=== PATIENT | female | born 1935 | race Caucasian/White ===

== ENCOUNTER 2016-09-06 17:23 | Emergency (ER) | payer MEDICARE, OTHER ==
[~2016-09-06 17:23] MED LIST: Iopamidol 370 76% 100 ML VIAL ONE
[2016-09-06 17:52] LABS: #Basophils 0.1 thou/uL (0.0-0.2); #Eosinphils 0.1 thou/uL (0.0-0.7); #Lymphocytes 2.4 thou/uL (1.20-3.40); #Monocytes 0.6 thou/uL (0.11-0.59); #Neutrophils 5.8 thou/uL (1.40-6.50); %Eosinophils 0.7 % (0.0-10.0); %Lymphocytes 26.8 % (21.0-51.0); %Monocytes 6.6 % (0.0-10.0); %Neutrophils 64.9 % (42.0-75.0); Hemoglobin 14.4 g/dL (12.0-16.0); Mean Corpuscular HGB CONC 32.6 g/dL (32.0-36.0); Mean Corpuscular Hemoglobin 29.5 pg (27.0-31.0); Mean Corpuscular Volume 90.5 fl (81.0-99.0); Mean Platelet Volume 6.1 fL (7.4-10.4); Platelet Count 388 thou/uL (130-400); RBC Distribution Width 11.9 % (11.5-14.5); Red Blood Cell (RBC) Count 4.88 mill/uL (4.20-5.40)
[2016-09-06] MEDS ORDERED: Nitroglycerin 0.4 MG TAB (25 Tab Bottle) ONE (17:57)
[2016-09-06 18:08] LABS: Bilirubin Negative (Negative); Blood, Urine Negative (Negative); Clarity Clear (Clear); Glucose, Urine (Dipstick) Negative (Negative); Leukocyte Negative (Negative); Nitrite Negative (Negative); Protein, Urine (Dipstick) Negative (Neg-Trace); Urobilinogen 0.2 mg/dL (0.2-1.0); pH, Urine 5.5 (5.0-9.0)
[2016-09-06 18:09] LABS: ALT (SGPT) 7 U/L (8-55); AST (SGOT) 12 U/L (5-34); Albumin 3.9 g/dL (3.4-4.8); Alkaline Phosphatase 63 U/L (40-150); Anion Gap 16 mmol/L (10-20); BUN (Urea Nitrogen) 11 mg/dL (9.8-20.1); Bilirubin, Total 0.6 mg/dL (0.2-1.2); Calc. Creatinine Clearance 0 mL/min (70-130); Calcium 9.7 mg/dL (7.8-10.44); Carbon Dioxide 25 mmol/L (23-31); Chloride 102 mmol/L (98-107); Estimated GFR-MDRD 55; Globulin 3.3 g/dL (2.4-3.5); Glucose 147 mg/dL (83-110); Potassium 3.7 mmol/L (3.5-5.1); Protein, Total 7.2 g/dL (6.0-8.3); Sodium 139 mmol/L (136-145)
[2016-09-06 18:09] LABS: Specific Gravity, Urine 1.004 (1.002-1.036)
[2016-09-06 18:11] LABS: CKMB 0.5 ng/mL (0-6.6); Troponin I Less than 0.010 ng/mL (< 0.028)
--- NOTE | 2016-09-06 19:46 | CT ---
CT OF THE BRAIN WITHOUT CONTRAST 09/06/16 A noncontrast study was compared with the prior exam of 02/21/15. Some patchy hypolucency in the deep white matter is consistent with chronic microvascular ischemia a nd seems little different than the 2016 study. There were no areas strongly suggestive of acute stro ke, though MRI would be more sensitive to such. No bleeding, parenchymal mass or edema was seen. Are as of prominence of the inner table of the left temporoparietal region are no different than before. IMPRESSION: Chronic ischemic changes but no acute findings. POS: HOME
--- NOTE | 2016-09-06 19:51 | CT ---
CT ABDOMEN AND PELVIS WITH CONTRAST 09/06/16 Comparison is made with the prior study dated 02/21/15. No acute infiltrates or effusions are seen in the lung bases. The liver, spleen, and pancreas showed no acute changes. There is a 2.6 cm cyst in the lower portion of the right lobe of the liver which is unchanged. The left adrenal gland seems rather thick, a little more so than before, but not disti nctly mass-like. No renal mass was seen; however, there is some mild right hydronephrosis that is mo re prominent today than before. the ureter does not seem particularly dilated and I can find no part icular cause for the finding. I also understand that her urine is clean and her pain is actually lef t sided. The bowel shows some mild gaseous distention of the colon but no evidence of obstruction. Diverticul osis is quite prominent in the sigmoid region but there are no convincing findings of diverticulitis at the moment. No free air or free fluid was seen. CT of the pelvis was remarkable for the diverticulosis. No pelvic masses, inflammatory changes or fr ee fluid could be seen. Degenerative changes are present in the spine. IMPRESSION: 1. Diverticulosis, particularly sigmoid, without findings of diverticulitis. 2. Very mild right hydronephrosis compared to the prior scan. The finding may or may not be of significance. POS: HOME
== END 2016-09-06 21:00 | disposition short-term general hospital (02) ==
LOC: BURERS 17:23
DX: G45.9 Transient cerebral ischemic attack, unspecified (principal); I10 Essential (primary) hypertension; K29.50 Unspecified chronic gastritis without bleeding; K21.9 Gastro-esophageal reflux disease without esophagitis; J42 Unspecified chronic bronchitis; E78.5 Hyperlipidemia, unspecified; Z79.82 Long term (current) use of aspirin; Z79.899 Other long term (current) drug therapy
CPT/HCPCS: 51701; 70450; 74177; 80053; 81003; 82553; 83880; 84443; 84484; 85025; 93005; A4216; A4353

== ENCOUNTER 2019-01-01 07:03 | Emergency (ER) | payer MEDICARE, OTHER ==
[2019-01-01] MEDS ORDERED: Nitroglycerin 0.4 MG TAB 1 EACH ONE ×2 (07:22→07:34)
[2019-01-01] MEDS ORDERED: Aspirin Chewable 81 MG TAB ONE (07:22)
[2019-01-01 07:26] LABS: #Basophils 0.1 thou/uL (0.0-0.2); #Eosinphils 0.1 thou/uL (0.0-0.7); #Lymphocytes 2.6 thou/uL (1.20-3.40); #Monocytes 0.7 thou/uL (0.11-0.59); #Neutrophils 7.7 thou/uL (1.40-6.50); %Eosinophils 0.7 % (0.0-10.0); %Lymphocytes 23.5 % (21.0-51.0); %Monocytes 5.8 % (0.0-10.0); Mean Corpuscular HGB CONC 32.1 g/dL (32.0-36.0); Mean Corpuscular Hemoglobin 30.2 pg (27.0-31.0); Mean Platelet Volume 6.9 fL (7.4-10.4); Platelet Count 309 thou/uL (130-400); RBC Distribution Width 12.3 % (11.5-14.5); Red Blood Cell (RBC) Count 4.63 mill/uL (4.20-5.40); White Blood Cell (WBC) Count 11.2 thou/uL (4.8-10.8)
[2019-01-01] MEDS ORDERED: Metoprolol Tartrate 5 MG/5 ML VIAL ONE (07:37)
[2019-01-01 07:43] LABS: ALT (SGPT) 10 U/L (8-55); AST (SGOT) 15 U/L (5-34); Albumin 4.2 g/dL (3.4-4.8); Alkaline Phosphatase 69 U/L (40-110); Anion Gap 17 mmol/L (10-20); BUN (Urea Nitrogen) 16 mg/dL (9.8-20.1); Bilirubin, Total 0.5 mg/dL (0.2-1.2); Calc. Creatinine Clearance 0 mL/min (70-130); Calcium 9.9 mg/dL (7.8-10.44); Carbon Dioxide 26 mmol/L (23-31); Chloride 104 mmol/L (98-107); Estimated GFR-MDRD 50; Globulin 3.3 g/dL (2.4-3.5); Glucose 103 mg/dL (83-110); Potassium 3.9 mmol/L (3.5-5.1); Protein, Total 7.5 g/dL (6.0-8.3); Sodium 143 mmol/L (136-145)
--- NOTE | 2019-01-01 19:37 | RAD ---
PORTABLE CHEST: 01/01/19 An AP portable film at 0724 is compared with a 02/21/15 study. The heart is normal in size and there is no vascular congestion, edema, or pleural effusion. The lynne gs are mildly hyperexpanded. There is some minor prominence of the basilar markings, a little more so than in 2016. Nevertheless, the findings look more chronic than acute. No major lobar infiltrates we re seen. Some calcification is seen in the aortic arch. IMPRESSION: Minor accentuation of basilar markings, more likely chronic than acute. POS: HOME
== END 2019-01-01 09:09 | disposition short-term general hospital (02) ==
LOC: BURERS 07:03
DX: I20.0 Unstable angina (principal); I10 Essential (primary) hypertension; K21.9 Gastro-esophageal reflux disease without esophagitis; J42 Unspecified chronic bronchitis; E78.5 Hyperlipidemia, unspecified; M19.90 Unspecified osteoarthritis, unspecified site
CPT/HCPCS: 71045; 80053; 83880; 84484; 85025; 85379; 93005; 96374

== ENCOUNTER 2019-02-19 13:34 | Emergency (ER) | payer MEDICARE ==
[2019-02-19 16:21] LABS: #Basophils 0.1 thou/uL (0.0-0.2); #Eosinphils 0.1 thou/uL (0.0-0.7); #Lymphocytes 1.1 thou/uL (1.20-3.40); #Monocytes 0.9 thou/uL (0.11-0.59); #Neutrophils 7.8 thou/uL (1.40-6.50); %Eosinophils 0.8 % (0.0-10.0); %Lymphocytes 11.1 % (21.0-51.0); %Monocytes 8.5 % (0.0-10.0); %Neutrophils 78.6 % (42.0-75.0); Hemoglobin 13.6 g/dL (12.0-16.0); Mean Corpuscular HGB CONC 32.3 g/dL (32.0-36.0); Mean Corpuscular Hemoglobin 30.2 pg (27.0-31.0); Mean Corpuscular Volume 93.7 fL (78.0-98.0); Mean Platelet Volume 7.3 fL (7.4-10.4); Platelet Count 341 thou/uL (130-400); RBC Distribution Width 12.5 % (11.5-14.5); White Blood Cell (WBC) Count 9.9 thou/uL (4.8-10.8)
[2019-02-19 16:25] LABS: Prothrombin Time 13.1 SEC (12.0-14.7)
[2019-02-19 16:34] LABS: ALT (SGPT) 13 U/L (8-55); AST (SGOT) 14 U/L (5-34); Albumin 3.8 g/dL (3.4-4.8); Alkaline Phosphatase 112 U/L (40-110); Anion Gap 14 mmol/L (10-20); BUN (Urea Nitrogen) 16 mg/dL (9.8-20.1); Bilirubin, Total 0.2 mg/dL (0.2-1.2); Calc. Creatinine Clearance 0 mL/min (70-130); Calcium 9.6 mg/dL (7.8-10.44); Carbon Dioxide 29 mmol/L (23-31); Chloride 104 mmol/L (98-107); Estimated GFR-MDRD 63; Globulin 3.2 g/dL (2.4-3.5); Glucose 89 mg/dL (83-110); Sodium 143 mmol/L (136-145)
--- NOTE | 2019-02-19 17:53 | CT ---
CT OF THE PELVIS WITHOUT CONTRAST: 02/19/[address] of the pelvis was performed following a fall. The patient presents with right hip pain. My understanding is the trauma is subacute. There is a small acute bend to the cortex at the junction of the right greater trochanter and base of the right femoral neck. Additionally, there is a small cortical bump along the upper surface of the right femoral neck, and on a few slices, question of a slight sclerotic area across the femoral neck. The findings are suspicious for, but I feel not completely diagnostic of, a subtle acute fracture. T he left hip appears intact. No pelvic fractures were appreciated. Degenerative changes are seen in th e lower lumbar region. Portions of the right kidney were seen and there are a few subcentimeter hyperechoic cysts at its per iphery, probably small hemorrhagic cysts. This is of no real concern. Sigmoid diverticulosis is prese nt. A tiny umbilical hernia was noted. Filled with fat. IMPRESSION: Findings suspicious for a possible fracture at the base of the right femoral neck as it joins the gre ater trochanter. MRI would be diagnostic as to whether this is real and acute or not. POS: HOME
--- NOTE | 2019-02-19 18:14 | CT ---
CT OF THE RIGHT HIP 02/19/19 Comparison is made with the CT of the pelvis done this same day. As stated on the other exam, there is an area at the base of the right femoral neck where there is so me acute angulation of cortex. Nearby, there is a slight sclerotic band across the bone. The findings raise the question of a minimal impacted fracture at the base of the femoral neck. There is no dislo cation of the femoral head. No soft tissue findings of concern were seen in the vicinity. IMPRESSION: Findings suspicious for, but not diagnostic of a subtle fracture at the base of the femoral neck. If further studies are desired, an MRI would be diagnostic and able to show some edema in the area if th is is acute. POS: HOME
== END 2019-02-19 16:00 | disposition short-term general hospital (02) ==
LOC: BURERS 13:34
DX: S72.001A Fracture of unspecified part of neck of right femur, initial encounter for closed fracture (principal); I10 Essential (primary) hypertension; K21.9 Gastro-esophageal reflux disease without esophagitis; M19.90 Unspecified osteoarthritis, unspecified site; E78.5 Hyperlipidemia, unspecified; W18.30XA Fall on same level, unspecified, initial encounter
CPT/HCPCS: 72192; 80053; 85025; 85610

== ENCOUNTER 2020-07-03 10:37 | Emergency (ER) | payer MEDICARE ==
[2020-07-03 11:14] LABS: #Eosinphils 0.1 thou/uL (0.0-0.7); #Lymphocytes 1.4 thou/uL (1.20-3.40); #Monocytes 0.5 thou/uL (0.11-0.59); #Neutrophils 4.8 thou/uL (1.40-6.50); %Basophils 0.7 % (0.0-1.0); %Lymphocytes 21.2 % (21.0-51.0); %Monocytes 6.7 % (0.0-10.0); %Neutrophils 70.4 % (42.0-75.0); Hemoglobin 14.9 g/dL (12.0-16.0); Mean Corpuscular HGB CONC 32.2 g/dL (32.0-36.0); Mean Corpuscular Hemoglobin 29.6 pg (27.0-31.0); Mean Corpuscular Volume 91.8 fL (78.0-98.0); Mean Platelet Volume 6.5 fL (7.4-10.4); Platelet Count 340 thou/uL (130-400); RBC Distribution Width 12.5 % (11.5-14.5); Red Blood Cell (RBC) Count 5.04 mill/uL (4.20-5.40); White Blood Cell (WBC) Count 6.8 thou/uL (4.8-10.8)
[2020-07-03 11:24] LABS: Bilirubin Negative (Negative); Blood, Urine Trace (Negative); Clarity Clear (Clear); Glucose, Urine (Dipstick) Negative (Negative); Ketone, Urine Negative (Negative); Leukocyte Negative (Negative); Nitrite Negative (Negative); Protein, Urine (Dipstick) Negative (Neg-Trace); Specific Gravity, Urine 1.015 (1.005-1.030); Urobilinogen 0.2 mg/dL (Less than 2); pH, Urine 5.5 (5.0-9.0)
[2020-07-03 11:30] LABS: ALT (SGPT) 9 U/L (8-55); AST (SGOT) 12 U/L (5-34); Albumin 3.8 g/dL (3.4-4.8); Alkaline Phosphatase 65 U/L (40-110); Anion Gap 14 mmol/L (10-20); BUN (Urea Nitrogen) 26 mg/dL (9.8-20.1); Bilirubin, Total 0.4 mg/dL (0.2-1.2); Calc. Creatinine Clearance 0 mL/min (70-130); Calcium 9.6 mg/dL (7.8-10.44); Carbon Dioxide 28 mmol/L (23-31); Chloride 102 mmol/L (98-107); Globulin 2.9 g/dL (2.4-3.5); Glucose 167 mg/dL (83-110); Lipase 10 U/L (8-78); Potassium 4.1 mmol/L (3.5-5.1); Protein, Total 6.7 g/dL (5.8-8.1); Sodium 140 mmol/L (136-145)
[2020-07-03 11:32] LABS: Bacteria/HPF Rare-Few HPF (None Seen); RBC/HPF 0-3 HPF (0-3); Squamous Epithelial 0-3 HPF (0-3); WBC/HPF None Seen HPF (0-3)
[2020-07-03] MEDS ORDERED: Lidocaine 1% PF 5 ML VIAL ONE (11:33)
[2020-07-03] MEDS ORDERED: cefTRIAXone\\ROCEPHIN 1 GM VIAL ONE (11:33)
[2020-07-03] MEDS ORDERED: Aspirin Chewable 81 MG TAB ONE (12:28)
== END 2020-07-03 22:22 | disposition short-term general hospital (02) ==
LOC: BURERS 10:37
DX: R07.89 Other chest pain (principal); K21.9 Gastro-esophageal reflux disease without esophagitis; E78.2 Mixed hyperlipidemia; I10 Essential (primary) hypertension; M19.90 Unspecified osteoarthritis, unspecified site
CPT/HCPCS: 36415; 71045; 80053; 81003; 81015; 83690; 83880; 84484; 85025; 93005; J0696

== ENCOUNTER 2021-03-20 16:37 | Emergency (ER) | payer MEDICARE ==
[2021-03-20 17:56] LABS: Bilirubin Negative (Negative); Blood, Urine Trace (Negative); Clarity Clear (Clear); Glucose, Urine (Dipstick) Negative (Negative); Ketone, Urine Negative (Negative); Leukocyte Negative (Negative); Nitrite Negative (Negative); Protein, Urine (Dipstick) Negative (Neg-Trace); Urobilinogen 0.2 mg/dL (Less than 2); pH, Urine 5.5 (5.0-9.0)
[2021-03-20 17:58] LABS: #Basophils 0.2 thou/uL (0.0-0.2); #Eosinphils 0.2 thou/uL (0.0-0.7); #Lymphocytes 2.1 thou/uL (1.20-3.40); #Monocytes 0.9 thou/uL (0.11-0.59); #Neutrophils 7.7 thou/uL (1.40-6.50); %Basophils 1.8 % (0.0-1.0); %Eosinophils 1.8 % (0.0-10.0); %Lymphocytes 19.2 % (21.0-51.0); %Neutrophils 69.2 % (42.0-75.0); Hemoglobin 13.5 g/dL (12.0-16.0); Mean Corpuscular HGB CONC 32.7 g/dL (32.0-36.0); Mean Corpuscular Hemoglobin 29.4 pg (27.0-31.0); Mean Corpuscular Volume 89.9 fL (78.0-98.0); Mean Platelet Volume 5.9 fL (7.4-10.4); Platelet Count 537 thou/uL (130-400); RBC Distribution Width 12.2 % (11.5-14.5); Red Blood Cell (RBC) Count 4.61 mill/uL (4.20-5.40)
[2021-03-20 18:04] LABS: Specific Gravity, Urine 1.009 (1.002-1.036)
[2021-03-20 18:13] LABS: ALT (SGPT) 13 U/L (8-55); AST (SGOT) 13 U/L (5-34); Albumin 3.7 g/dL (3.4-4.8); Alkaline Phosphatase 78 U/L (40-110); Anion Gap 14 mmol/L (10-20); BUN (Urea Nitrogen) 25 mg/dL (9.8-20.1); Bilirubin, Total 0.3 mg/dL (0.2-1.2); Calc. Creatinine Clearance 0 mL/min (70-130); Calcium 9.3 mg/dL (7.8-10.44); Carbon Dioxide 29 mmol/L (23-31); Chloride 98 mmol/L (98-107); Globulin 3.7 g/dL (2.4-3.5); Glucose 98 mg/dL (83-110); Magnesium 2.2 mg/dL (1.6-2.6); Potassium 4.1 mmol/L (3.5-5.1); Protein, Total 7.4 g/dL (5.8-8.1); Sodium 137 mmol/L (136-145)
[2021-03-20 18:19] LABS: Bacteria/HPF None Seen HPF (None Seen); RBC/HPF 0-3 HPF (0-3); Squamous Epithelial 0-3 HPF (0-3); WBC/HPF 0-3 HPF (0-3)
== END 2021-03-20 19:15 | disposition home or self-care (01) ==
LOC: BURERS 16:37
DX: F32.A Depression, unspecified (principal); I10 Essential (primary) hypertension; E78.2 Mixed hyperlipidemia; K21.9 Gastro-esophageal reflux disease without esophagitis; M19.90 Unspecified osteoarthritis, unspecified site; J42 Unspecified chronic bronchitis; Z79.82 Long term (current) use of aspirin
CPT/HCPCS: 71045; 80053; 81003; 81015; 83735; 84443; 84484; 85025

== ENCOUNTER 2021-09-08 13:52 | Emergency (ER) | payer MEDICARE ==
[2021-09-08] MEDS ORDERED: traMADol HCl 50 MG TAB ONE (15:10)
== END 2021-09-08 15:15 | disposition home or self-care (01) ==
LOC: BURERS 13:52
DX: S32.591A Other specified fracture of right pubis, initial encounter for closed fracture (principal); E78.5 Hyperlipidemia, unspecified; K21.9 Gastro-esophageal reflux disease without esophagitis; I10 Essential (primary) hypertension; X58.XXXA Exposure to other specified factors, initial encounter
CPT/HCPCS: 72220

== ENCOUNTER 2021-10-14 16:25 | Emergency (ER) | payer MEDICARE ==
[2021-10-14 17:34] LABS: #Basophils 0.2 thou/uL (0.0-0.2); #Eosinphils 0.1 thou/uL (0.0-0.7); #Lymphocytes 2.6 thou/uL (1.20-3.40); #Monocytes 0.8 thou/uL (0.11-0.59); #Neutrophils 7.2 thou/uL (1.40-6.50); %Basophils 1.9 % (0.0-1.0); %Eosinophils 0.9 % (0.0-10.0); %Lymphocytes 23.9 % (21.0-51.0); %Monocytes 7.3 % (0.0-10.0); Hemoglobin 14.3 g/dL (12.0-16.0); Mean Corpuscular HGB CONC 32.9 g/dL (32.0-36.0); Mean Corpuscular Hemoglobin 30.4 pg (27.0-31.0); Mean Corpuscular Volume 92.5 fL (78.0-98.0); Platelet Count 333 thou/uL (130-400); RBC Distribution Width 12.7 % (11.5-14.5); Red Blood Cell (RBC) Count 4.69 mill/uL (4.20-5.40); White Blood Cell (WBC) Count 10.8 thou/uL (4.8-10.8)
[2021-10-14 17:46] LABS: Bilirubin Negative (Negative); Blood, Urine Negative (Negative); Clarity Clear (Clear); Glucose, Urine (Dipstick) Negative (Negative); Ketone, Urine Negative (Negative); Leukocyte Negative (Negative); Nitrite Negative (Negative); Protein, Urine (Dipstick) Negative (Neg-Trace); Urobilinogen 0.2 mg/dL (Less than 2)
[2021-10-14 17:54] LABS: ALT (SGPT) 14 U/L (8-55); AST (SGOT) 18 U/L (5-34); Albumin 3.9 g/dL (3.4-4.8); Alkaline Phosphatase 75 U/L (40-110); Anion Gap 17 mmol/L (10-20); BUN (Urea Nitrogen) 28 mg/dL (9.8-20.1); Bilirubin, Total 0.3 mg/dL (0.2-1.2); Calc. Creatinine Clearance 0 mL/min (70-130); Calcium 9.7 mg/dL (7.8-10.44); Carbon Dioxide 25 mmol/L (23-31); Chloride 99 mmol/L (98-107); Estimated GFR 47; Globulin 3.3 g/dL (2.4-3.5); Glucose 93 mg/dL (83-110); Lipase 12 U/L (8-78); Potassium 4.4 mmol/L (3.5-5.1); Protein, Total 7.2 g/dL (5.8-8.1); Sodium 137 mmol/L (136-145)
== END 2021-10-14 18:32 | disposition home or self-care (01) ==
LOC: BURERS 16:25
DX: R06.02 Shortness of breath (principal); Z20.822 Contact with and (suspected) exposure to COVID-19; K21.9 Gastro-esophageal reflux disease without esophagitis; E78.5 Hyperlipidemia, unspecified; E78.00 Pure hypercholesterolemia, unspecified; I10 Essential (primary) hypertension
CPT/HCPCS: 71045; 80053; 81003; 83605; 83690; 83880; 84484; 85025; 93005; 99285; U0003; U0005

== ENCOUNTER 2021-11-27 17:22 | Emergency (ER) | payer MEDICARE ==
[2021-11-27] MEDS ORDERED: Dexamethasone 4 MG TAB ONE (17:56)
[2021-11-27] MEDS ORDERED: traMADol HCl 50 MG TAB ONE (17:56)
== END 2021-11-27 18:11 | disposition home or self-care (01) ==
LOC: BURERS 17:22
DX: J02.9 Acute pharyngitis, unspecified (principal); E78.2 Mixed hyperlipidemia; I10 Essential (primary) hypertension; M19.90 Unspecified osteoarthritis, unspecified site; J42 Unspecified chronic bronchitis
CPT/HCPCS: 99282; J8540

== ENCOUNTER 2021-12-02 10:39 | Emergency (ER) | payer MEDICARE ==
[2021-12-02 11:40] LABS: #Basophils 0.1 thou/uL (0.0-0.2); #Eosinphils 0.1 thou/uL (0.0-0.7); #Lymphocytes 1.4 thou/uL (1.20-3.40); #Monocytes 0.9 thou/uL (0.11-0.59); #Neutrophils 6.8 thou/uL (1.40-6.50); %Eosinophils 0.6 % (0.0-10.0); %Lymphocytes 15.2 % (21.0-51.0); %Monocytes 9.9 % (0.0-10.0); %Neutrophils 73.3 % (42.0-75.0); Hemoglobin 13.7 g/dL (12.0-16.0); Mean Corpuscular HGB CONC 31.5 g/dL (32.0-36.0); Mean Corpuscular Hemoglobin 30.1 pg (27.0-31.0); Mean Corpuscular Volume 95.7 fL (78.0-98.0); Mean Platelet Volume 6.8 fL (7.4-10.4); Platelet Count 325 thou/uL (130-400); RBC Distribution Width 12.5 % (11.5-14.5); Red Blood Cell (RBC) Count 4.54 mill/uL (4.20-5.40); White Blood Cell (WBC) Count 9.2 thou/uL (4.8-10.8)
[2021-12-02] MEDS ORDERED: Dexamethasone 4 MG TAB ONE (11:49)
[2021-12-02 11:50] LABS: Bilirubin Negative (Negative); Blood, Urine Negative (Negative); Clarity Clear (Clear); Glucose, Urine (Dipstick) Negative (Negative); Ketone, Urine Negative (Negative); Leukocyte Negative (Negative); Nitrite Negative (Negative); Protein, Urine (Dipstick) Negative (Neg-Trace); Urobilinogen 0.2 mg/dL (Less than 2); pH, Urine 5.5 (5.0-9.0)
[2021-12-02 11:51] LABS: Specific Gravity, Urine 1.005 (1.002-1.036)
[2021-12-02 11:57] LABS: ALT (SGPT) 15 U/L (8-55); AST (SGOT) 14 U/L (5-34); Albumin 3.5 g/dL (3.4-4.8); Alkaline Phosphatase 72 U/L (40-110); Anion Gap 13 mmol/L (10-20); BUN (Urea Nitrogen) 22 mg/dL (9.8-20.1); Bilirubin, Total 0.4 mg/dL (0.2-1.2); Calc. Creatinine Clearance 0 mL/min (70-130); Calcium 9.1 mg/dL (7.8-10.44); Carbon Dioxide 25 mmol/L (23-31); Chloride 103 mmol/L (98-107); Estimated GFR 64; Globulin 2.7 g/dL (2.4-3.5); Glucose 89 mg/dL (83-110); Protein, Total 6.2 g/dL (5.8-8.1); Sodium 137 mmol/L (136-145)
[2021-12-02] MEDS ORDERED: Ondansetron ODT 4 MG TAB ONE (12:21)
== END 2021-12-02 12:56 | disposition home or self-care (01) ==
LOC: BURERS 10:39
DX: J06.9 Acute upper respiratory infection, unspecified (principal); M54.31 Sciatica, right side; E78.5 Hyperlipidemia, unspecified; E78.00 Pure hypercholesterolemia, unspecified; I10 Essential (primary) hypertension
CPT/HCPCS: 71045; 80053; 81003; 84484; 85025; 87081; 87086; 87430; 87804; J8540; Q0162